=== PATIENT | male | born 1950 | race Caucasian/White ===

== ENCOUNTER 2018-01-07 09:49 | Inpatient (IN) | payer MEDICARE ==
[~2018-01-07] VITALS: Ht 177.8 cm; Wt 118.9 kg
[~2018-01-07 09:49] MED LIST: ADVIL 200MG TA200 MG PO; ALDACTONE 25MG25 M1 PO; ALTACE 10MG TAB10 MG PO; ALTACE 5MG5 MG PO; ALTACE5 MG PO; ASPIRIN E.C. 8181 MG PO; BETAPACE 80MG80 MG PO; BYSTOLIC10 MG PO; CORDARONE200 MG/TAB PO; DIOVAN 160MG160 MG PO; GLUCOPHAGE500 MG PO; GLUCOPHAGE500 MG/TAB PO; KLOR-CON 1010 MEQ PO; LANTUS100 U/ML SC; LANTUS100 U/ML SQ; LASIX 40MG TABL40 MG PO; LASIX40 MG PO; LIPITOR 80MG80 MG PO; LORTAB 5/500 501 TAB PO; MULTIPLE VITAMI1 CAP PO; NITROSTAT0.4 MG/TAB SL; NOVOLOG FLEX100 U/ML SQ; NOVOLOG100 U/ML SC; PLAVIX 75MG TAB75 MG PO; PRILOSEC20 M1 PO; PROCARDIA XL60 MG PO; SYMLINPEN1000 MCG/M SQ; TOPROL XL50 MG PO; VIAGRA100 M1; VIAGRA100 MG PO; VICTOZA6 MG/ML SQ; XARELTO20 MG PO; ZOCOR80 MG PO
[2018-02-28] VITALS (10 sets, daily range): BP systolic 113–134; BP diastolic 52–70; PULSE 46–62; TEMP 97–98.2
[2018-02-28] MEDS ORDERED: PRILOTC PO (09:56)
[2018-03-01 04:06] VITALS: BP 99/49; PULSE 57; TEMP 98.1
[2018-03-01 06:22] LABS: HEMOGLOBIN 10.4 g/dl (13.5-18.0)
[2018-03-01 06:27] LABS: HEMATOCRIT 32.7 % (42.0-52.0)
[2018-03-01 06:30] LABS: CALCIUM 7.7 mg/dL (8.4-10.2); CREATININE, serum 1.26 mg/dL (0.66-1.25); POTASSIUM 4.4 mmol/L (3.4-5.0)
[2018-03-01 08:50] VITALS: BP 102/50; PULSE 53; TEMP 97.5
[2018-03-01 11:58] VITALS: BP 128/72; PULSE 57; TEMP 97.8
[2018-03-01 15:54] VITALS: BP 139/66; PULSE 63; TEMP 98.1
[2018-03-01 21:23] VITALS: BP 140/62; PULSE 78; PULSE 80; TEMP 99
[2018-03-02 00:21] VITALS: BP 136/67; PULSE 80; TEMP 99.1
[2018-03-02 04:31] VITALS: BP 157/86; PULSE 65; TEMP 98.5
[2018-03-02] MEDS ORDERED: XARELTO10 MG PO (06:47)
[2018-03-02] MEDS ORDERED: ROXICODONE 55 MG/TAB PO (06:48)
[2018-03-02] MEDS ORDERED: NORCO 325 MG-7.1 TAB PO (06:48)
[2018-03-02 07:27] VITALS: BP 160/61; PULSE 64; TEMP 98.4
[2018-03-02 07:31] LABS: CALCIUM 8.1 mg/dL (8.4-10.2); CREATININE, serum 1.33 mg/dL (0.66-1.25); POTASSIUM 4.7 mmol/L (3.4-5.0)
[2018-03-02 11:24] VITALS: BP 130/57; PULSE 62; TEMP 98.2
== END 2018-03-02 13:45 | disposition home or self-care (01) | DRG 470 ==
LOC: JCC 02-28 09:09
PROVIDERS: Hospitalist; Nurse Practitioner Family; Orthopaedic Surgery
PROC: 0SRC0J9 Replacement of Right Knee Joint with Synthetic Substitute, Cemented, Open Approach (ICD-10-PCS; principal; 2018-02-28 16:40)
DX: M17.11 Unilateral primary osteoarthritis, right knee (principal); I12.9 Hypertensive chronic kidney disease with stage 1 through stage 4 chronic kidney disease, or unspecified chronic kidney disease; E11.22 Type 2 diabetes mellitus with diabetic chronic kidney disease; N18.9 Chronic kidney disease, unspecified; I48.0 Paroxysmal atrial fibrillation; Z87.891 Personal history of nicotine dependence; Z79.4 Long term (current) use of insulin; I25.10 Atherosclerotic heart disease of native coronary artery without angina pectoris; Z95.5 Presence of coronary angioplasty implant and graft; E78.5 Hyperlipidemia, unspecified; Z79.01 Long term (current) use of anticoagulants
CPT/HCPCS: 99223; 99232-AI; A4314; A9284; C1713; C1776; J0690; J1815; J2250; J2405; J2704; J3010; J3260; J7030

== ENCOUNTER → 2018-02-17 | Outpatient (CLI) | payer MEDICARE, OTHER ==
[2018-02-17 13:30] LABS: HIV 1/2 Antibodies Non-Reactive; HIV-1p24 Antigen Non-Reactive
== END ==
LOC: COL.LAB 12:07
PROVIDERS: Orthopaedic Surgery
DX: Z01.812 Encounter for preprocedural laboratory examination (principal); M17.11 Unilateral primary osteoarthritis, right knee